=== PATIENT | male | born 1980 | race Hispanic/Latino ===

== ENCOUNTER 2020-10-26 17:48 | Emergency (ER) | payer SELFPAY ==
[2020-10-26 18:35] VITALS: BP 137/73
[2020-10-26] MEDS ORDERED: levETIRAcetam 1000 MG/NS 0.75% 1,000 MG/100 ML BAG IV ONE (19:14)
--- NOTE | 2020-10-26 19:18 | Emergency Department Report ---
HPI - General Chief Complaint: Seizure Time Seen by Provider: 10/26/20 19:06 - HPI HPI: Room 1 The patient is a 40-year-old male present with a chief complaint of seizures. Patient states he is visiting family from out of town had a seizure was subsequ ently sent to the ED. Patient states he takes Keppra for seizures and has been compliant. Patient states his last seizure before today was approximately 2 years ago. When asked how he is feeling the patient states he feels all right. ED Past Medical Hx - Past Medical History Previous Medical History?: Yes Hx Seizures: Yes - Surgical History Past Surgical History?: No - Family History Family history: no significant - Social History Smoking Status: Never Smoker Substance Use Type: Alcohol (Occasional), Marijuana - Medications Home Medications: Home Medications Medication Instructions Recorded Confirmed Last Taken Type levETIRAcetam [Keppra TAB] 500 mg PO BID #90 tablet 10/26/20 Unknown Rx ED Review of Systems ROS: Stated complaint: SEIZURE Other details as noted in HPI Constitutional: no symptoms reported Eyes: denies: eye pain ENT: denies: throat pain Respiratory: no symptoms reported Cardiovascular: denies: chest pain Endocrine: no symptoms reported Gastrointestinal: denies: abdominal pain Genitourinary: denies: dysuria Musculoskeletal: denies: back pain Neurological: denies: headache Physical Exam - Physical Exam Vital Signs: Vital Signs 10/26/20 18:25 Temperature 98.0 F Pulse Rate 84 Respiratory 24 Rate Blood Pressure 137/73 O2 Sat by Pulse 95 Oximetry Physical Exam: GENERAL: The patient is well-developed well-nourished male lying on stretcher not appearing to be in acute distress. [] HEENT: Normocephalic. Atraumatic. Extraocular motions are intact. Patient has moist mucous membranes. NECK: Supple. Trachea midline CHEST/LUNGS: Clear to auscultation. There is no respiratory distress noted. HEART/CARDIOVASCULAR: Regular. There is no tachycardia. There is no gallop rub or murmur. ABDOMEN: Abdomen is soft, nontender. Patient has normal bowel sounds. There is no abdominal distention. SKIN: There is no rash. There is no edema. There is no diaphoresis. NEURO: The patient is awake, alert, and oriented. The patient is cooperative. The patient has no focal neurologic deficits. The patient has normal speech. Cranial nerves II through XII grossly intact. GCS 15 MUSCULOSKELETAL: There is no evidence of acute injury. ED Course Vital Signs 10/26/20 18:25 Temperature 98.0 F Pulse Rate 84 Respiratory 24 Rate Blood Pressure 137/73 O2 Sat by Pulse 95 Oximetry ED Medical Decision Making - Lab Data Result diagrams: 10/26/20 19:17 10/26/20 19:17 Laboratory Tests 10/26/20 10/26/20 19:17 19:17 WBC 17.1 H RBC 5.35 H Hgb 17.1 H Hct 50.7 H MCV 95 H MCH 32 MCHC 34 RDW 13.5 Plt Count 197 Lymph % (Auto) 3.6 L [place] % (Auto) 8.1 H Eos % (Auto) 0.0 Baso % (Auto) 0.1 Lymph # (Auto) 0.6 L [place] # (Auto) 1.4 H Eos # (Auto) 0.0 Baso # (Auto) 0.0 Seg Neutrophils % 88.2 H Seg Neutrophils # 15.0 H Sodium 138 Potassium 4.4 Chloride 101.4 Carbon Dioxide 19 L Anion Gap 22 BUN 16 Creatinine 1.2 Estimated GFR > 60 BUN/Creatinine Ratio 13 Glucose 93 Calcium 9.8 Magnesium 3.70 H - Differential Diagnosis Seizure Critical care attestation.: If time is entered above; I have spent that time in minutes in the direct care of this critically ill patient, excluding procedure time. ED Disposition Clinical Impression: Seizure, Hypermagnesemia Disposition: - TO HOME OR SELFCARE Is pt being admited?: No Does the pt Need Aspirin: No Condition: Stable Instructions: Epilepsy, [id number] Additional Instructions: Return to the emergency department should you develop worsening symptoms, inability to tolerate food or liquids, high fever or any other concerns Prescriptions: levETIRAcetam [Keppra TAB] 500 mg PO BID #90 tablet Referrals: KAMILA GO MD [Staff Physician] - 3-5 Days (Dr. Go is a neurologist. Please follow-up with him for further evaluation) Time of Disposition: 20:18
[2020-10-26 19:50] LABS: Basophils % (Auto) 0.1 % (0.0-1.8); Hematocrit 50.7 % (35.5-45.6); Hemoglobin 17.1 gm/dl (11.8-15.2); Lymphocytes # (Auto) 0.6 K/mm3 (1.2-5.4); Lymphocytes % (Auto) 3.6 % (13.4-35.0); Mean Corpuscular HGB Conc 34 % (32-34); Mean Corpuscular Volume 95 fl (84-94); Monocytes # (Auto) 1.4 K/mm3 (0.0-0.8); Monocytes % (Auto) 8.1 % (0.0-7.3); Platelet Count 197 K/mm3 (140-440); Red Blood Count 5.35 M/mm3 (3.65-5.03); Red Cell Distribution Width 13.5 % (13.2-15.2)
[2020-10-26 20:03] LABS: BUN/Creatinine Ratio 13; Blood Urea Nitrogen 16 mg/dL (9-20); Calcium 9.8 mg/dL (8.4-10.2); Hemolysis Index 50
== END 2020-10-26 21:53 | disposition home or self-care (01) ==
LOC: ED 17:48
DX: R56.9 Unspecified convulsions (principal); E83.41 Hypermagnesemia; F12.90 Cannabis use, unspecified, uncomplicated; Z72.89 Other problems related to lifestyle; Z98.890 Other specified postprocedural states
CPT/HCPCS: 36415; 80048; 83735; 85025; 96374; 99283; J1953